=== PATIENT | female | born 1975 | race Caucasian/White ===

== ENCOUNTER 2022-06-11 16:21 | Emergency (ER) | payer MEDICAID, OTHER ==
[~2022-06-11] VITALS: Ht 149.9 cm; Wt 99.0 kg
[2022-06-11 16:44] VITALS: BP 116/63
== END 2022-06-11 21:12 | disposition left against medical advice (07) ==
LOC: ER 16:21
DX: Z53.21 Procedure and treatment not carried out due to patient leaving prior to being seen by health care provider (principal)

== ENCOUNTER 2023-02-11 09:19 | Emergency (ER) | payer MEDICAID, OTHER ==
[~2023-02-11] VITALS: Ht 152.4 cm; Wt 59.0 kg
[2023-02-11 11:17] LABS: CLARITY URINE CLEAR (CLEAR); COLOR URINE YELLOW (YELLOW); KETONES URINE NEGATIVE (NEGATIVE); LEUKOCYTE ESTERASE URINE NEGATIVE (NEGATIVE); NITRITE URINE NEGATIVE (NEGATIVE); OCCULT BLOOD URINE NEGATIVE (NEGATIVE); PH URINE 5.5 (4.5-8.0); PROTEIN URINE NEGATIVE (NEGATIVE); SPECIFIC GRAVITY URINE 1.018 (1.005-1.030); UROBILINOGEN URINE 0.2 E.U./dL (0.2-1.0)
[2023-02-11 11:51] LABS: BASOPHILS % 0.3 % (0.0-2.0); EOSINOPHILS % 1.2 % (0.0-5.0); HEMATOCRIT. 42.1 % (36.0-48.0); HEMOGLOBIN. 14.2 g/dL (12.0-16.0); LYMPHOCYTES % 15.9 % (20.0-50.0); MEAN CORPUSCULAR HEMOGLOBIN 28.4 pg (28.0-32.0); MEAN CORPUSCULAR VOLUME 83.9 fL (81.0-99.0); MEAN PLATELET VOLUME 7.1 fl (7.4-10.4); MONOCYTES % 7.4 % (2.0-8.0); NEUTROPHILS % 75.2 % (40.0-76.0); PLATELET 330 x1000/uL (130-400); RED BLOOD CELL COUNT 5.01 mill/uL (4.2-5.4); RED CELL DISTRIBUTION WIDTH 15.7 % (11.6-14.6)
[2023-02-11 12:02] LABS: CHLORIDE 107 mEq/L (98-107)
[2023-02-11 12:50] LABS: UCG SCREEN NEGATIVE
[2023-02-11] MEDS ORDERED: KETOROLAC 60MG/2ML VIAL IM ONE (13:00)
[2023-02-11] MEDS ORDERED: FAMO-135 MT (13:30)
[2023-02-11] MEDS ORDERED: IBUP-2028 MT (13:30)
[2023-02-11 14:37] VITALS: BP 127/86
== END 2023-02-11 14:41 | disposition home or self-care (01) ==
LOC: ER 09:19
DX: R10.30 Lower abdominal pain, unspecified (principal); Z98.890 Other specified postprocedural states
CPT/HCPCS: 36415; 80053; 81003; 81025; 83690; 85025; 96372; 99283; J1885